=== PATIENT | female | born 1970 | race Asian ===

== ENCOUNTER 2018-12-03 05:36 | Inpatient (IN) | payer OTHER ==
[2018-12-03] MEDS: LACTATED RINGER'S 1,000 ML IV ×3 (07:11→16:54)
[2018-12-03] MEDS ORDERED: CEFAZOLIN 1 GM INJ (07:30)
[2018-12-03] MEDS ORDERED: LIDOCAINE 100 MG SYRINGE (07:30)
[2018-12-03] MEDS ORDERED: ROCURONIUM 50 MG INJ ×2 (07:30)
[2018-12-03] MEDS ORDERED: NEOSTIGMINE 3 MG/3 ML SYRINGE (07:30)
[2018-12-03] MEDS ORDERED: GLYCOPYRROLATE 0.4 MG INJ (07:30)
[2018-12-03] MEDS ORDERED: MIDAZOLAM 1 MG/ML 2 ML INJ (07:30)
[2018-12-03] MEDS ORDERED: PROPOFOL 20 ML (07:30)
[2018-12-03] MEDS ORDERED: SEVOFLURANE 15 MIN (07:30)
[2018-12-03] MEDS ORDERED: FENTAnyl 50 MCG/ML VIAL ×2 (07:32→09:01)
[2018-12-03] MEDS: BUPIVACAINE 0.25%/EPI (SDV) 30 ML INJ (07:42)
[2018-12-03] MEDS ORDERED: MIDAZOLAM 1 MG/ML 2 ML INJ IV ×2 (10:30)
[2018-12-03] MEDS ORDERED: DIPHENHYDRAMINE 50 MG CAP PO (10:30)
[2018-12-03] MEDS ORDERED: hydrALAzine 20 MG INJ IV (10:30)
[2018-12-03] MEDS ORDERED: HYDROCODONE/APAP (5/325) TAB PO ×2 (10:30)
[2018-12-03] MEDS ORDERED: DIPHENHYDRAMINE 50 MG INJ IV ×2 (10:30)
[2018-12-03] MEDS ORDERED: TRIMETHOBENZAMIDE 100 MG/ML VIAL IM (10:30)
[2018-12-03] MEDS ORDERED: METOCLOPRAMIDE 10 MG INJ IV (10:30)
[2018-12-03] MEDS ORDERED: ONDANSETRON 4 MG INJ IV ×2 (10:30)
[2018-12-03] MEDS ORDERED: EPHEDrine 25 MG/5 ML SYG IV ×2 (10:30)
[2018-12-03] MEDS ORDERED: IPRATROPIUM (NEB) 0.5 MG/2.5 ML AMP HHN ×2 (10:30)
[2018-12-03] MEDS ORDERED: morphine 2 MG INJ IV (10:30)
[2018-12-03] MEDS ORDERED: ALBUTEROL 0.083% (NEB) 2.5 MG/3 ML AMP HHN ×2 (10:30)
[2018-12-03] MEDS ORDERED: FENTAnyl 50 MCG/ML VIAL IV ×2 (10:30)
[2018-12-03] MEDS ORDERED: ZOLPIDEM 5 MG TAB PO (10:30)
[2018-12-03] MEDS ORDERED: HYDROmorphONE 1 MG/5 ML IV SYRINGE IV ×4 (10:30→10:35)
[2018-12-03] MEDS ORDERED: MEPERIDINE 25 MG INJ IV ×2 (10:30)
[2018-12-03] MEDS ORDERED: LABETALOL HCL 20MG INJ IV (10:30)
[2018-12-03] MEDS ORDERED: LABETALOL HCL 20MG INJ (10:35)
[2018-12-03] MEDS ORDERED: hydrALAzine 20 MG INJ (10:44)
[2018-12-03] MEDS: KETOROLAC 30 MG INJ IV ×3 (10:47→22:34)
[2018-12-03] MEDS: ONDANSETRON INJ 6 MG in DEXTROSE 5% 50 ML IVPB (10:48)
[2018-12-03] MEDS: HYDROmorphONE 1 MG/5 ML IV SYRINGE IV ×2 (10:49→10:56)
[2018-12-03] MEDS: LABETALOL HCL 20MG INJ IV (10:50)
[2018-12-03] MEDS: hydrALAzine 20 MG INJ IV (10:54)
[2018-12-03] MEDS: FENTAnyl 50 MCG/ML VIAL IV ×2 (11:05→11:24)
[2018-12-03] MEDS: METOCLOPRAMIDE 10 MG TAB PO ×2 (13:22→18:00)
[2018-12-03] MEDS: CEFAZOLIN 1 GM/50 ML (PMX) 50 ML IVPB ×2 (13:24→21:36)
[2018-12-04] MEDS: METOCLOPRAMIDE 10 MG TAB PO ×5 (00:11→23:27)
[2018-12-04] MEDS: LACTATED RINGER'S 1,000 ML IV ×2 (02:02→10:06)
[2018-12-04] MEDS: KETOROLAC 30 MG INJ IV ×4 (04:10→23:27)
[2018-12-04 05:09] LABS: ADD MAN DIFF? NO
[2018-12-04 05:11] LABS: BASOPHILS % 0.1 % (0.0-2.0); EOSINOPHILS % 0.6 % (0.0-7.0); HEMATOCRIT 33.3 % (37.0-47.0); HEMOGLOBIN 10.8 g/dl (12.0-16.0); LYMPHOCYTES % 14.4 % (15.0-51.0); MEAN CORPUSCULAR HGB CONC 32.4 g/dl (32.0-37.0); MEAN CORPUSCULAR VOLUME 86.3 fl (82.0-101.0); MEAN PLATELET VOLUME 10.5 fl (7.4-10.4); MONOCYTE # 0.6 10^3/ul (0.3-0.9); MONOCYTES % 8.4 % (0.0-11.0); NEUTROPHIL # 5.5 10^3/ul (1.6-7.5); NEUTROPHILS % 76.2 % (39.0-77.0); PLATELET COUNT 157 10^3/UL (140-415); RED BLOOD COUNT 3.86 10^6/ul (4.20-5.40)
[2018-12-04 05:11] LABS: WHITE BLOOD COUNT 7.2 10^3/ul (4.8-10.8)
[2018-12-04 05:33] LABS: ANION GAP 6 (5-13); BLOOD UREA NITROGEN 8 mg/dl (7-20); CARBON DIOXIDE 26 mmol/L (21-31); CHLORIDE 111 mmol/L (97-110); CREATININE 0.69 mg/dl (0.44-1.00); POTASSIUM 3.6 mmol/L (3.5-5.1); SODIUM 143 mmol/L (135-144)
[2018-12-04] MEDS: CEFAZOLIN 1 GM/50 ML (PMX) 50 ML IVPB (05:43)
[2018-12-04] MEDS: LOSARTAN 50 MG TAB PO (08:44)
[2018-12-04] MEDS: BISACODYL (EC) 5 MG TAB PO (12:00)
[2018-12-05] MEDS: METOCLOPRAMIDE 10 MG TAB PO ×2 (05:10→12:16)
[2018-12-05] MEDS: KETOROLAC 30 MG INJ IV (05:11)
[2018-12-05] MEDS: LOSARTAN 50 MG TAB PO (08:58)
== END 2018-12-05 15:50 | disposition home or self-care (01) | DRG 743 ==
LOC: REC 05:36 → MS1 11:38
PROC: 0UT97ZZ Resection of Uterus, Via Natural or Artificial Opening (ICD-10-PCS; principal; 2018-12-03 07:30)
PROC: 0UB57ZZ Excision of Right Fallopian Tube, Via Natural or Artificial Opening (ICD-10-PCS; 2018-12-03 07:30)
PROC: 0UT67ZZ Resection of Left Fallopian Tube, Via Natural or Artificial Opening (ICD-10-PCS; 2018-12-03 07:30)
PROC: 0UBC7ZZ Excision of Cervix, Via Natural or Artificial Opening (ICD-10-PCS; 2018-12-03 07:30)
DX: D25.9 Leiomyoma of uterus, unspecified (principal); N70.11 Chronic salpingitis; Z86.001 Personal history of in-situ neoplasm of cervix uteri
CPT/HCPCS: 80051; 82565; 84520; 84703; 85025; 86850; 86900; 86901; 86920; 87086; 88307